=== PATIENT | female | born 1965 | race Hispanic/Latino ===

== ENCOUNTER 2019-10-08 17:02 | Emergency (ER) | payer OTHER, SELFPAY ==
[2019-10-08 17:51] LABS: Absolute Lymphocytes (CBC) 2.2 K/uL (0.7-4.9); Basophils % 1.1 % (0-1.3); Hematocrit 40.3 % (36.0-45.0); Lymphocytes % 28.7 % (15.3-44.8); MPV 10.5 fL (7.6-11.3); RBC Red Blood Cell Count 4.84 M/uL (3.86-4.86)
[2019-10-08 17:53] LABS: Urine Blood TRACE (NEG); Urine Glucose NEGATIVE (NEG); Urine Protein NEGATIVE (NEG); Urine Specific Gravity 1.015 (1.005-1.030)
[2019-10-08] MEDS ORDERED: MORPHINE 4 MG/ML SYR ONE (18:05)
[2019-10-08] MEDS ORDERED: ONDANSETRON 4 MG/2 ML VIAL ONE (18:05)
[2019-10-08 18:07] LABS: Albumin 4.2 g/dL (3.4-5.0); Bilirubin Direct 0.2 mg/dL (0-0.2); Bilirubin Total 0.5 mg/dL (0.2-1.0); Potassium 3.2 mmol/L (3.5-5.1); Protein, Total 8.4 g/dL (6.4-8.2)
--- NOTE | 2019-10-08 19:06 | RAD REPORT ---
EXAM DESCRIPTION: CTAbdomen Pelvis W Contrast - 10/08/2019 6:55 pm CLINICAL HISTORY: Abdominal pain. ABD PAIN COMPARISON: Stone Protocol dated 01/02/2018 TECHNIQUE: Biphasic CT imaging of the abdomen and pelvis was performed with 100 ml non-ionic IV cont rast. All CT scans are performed using dose optimization technique as appropriate and may include automated exposure control or mA/KV adjustment according to patient size. FINDINGS: The lung bases are clear. The liver, spleen, pancreas, adrenal glands are within normal limits. Cholelithiasis. Moderate right hydronephrosis and hydroureter is present caused by 5 mm stone at the right UVJ (900 H U). Additional bilateral renal stones are present. No bowel obstruction, free air, free fluid or abscess. The appendix is normal. No evidence of signi ficant lymphadenopathy. No suspicious bony findings. IMPRESSION: 5 mm stone at the right UVJ with moderate right hydronephrosis and hydroureter. Additional bilateral nephrolithiasis. Cholelithiasis.
[2019-10-08] MEDS ORDERED: TAMSULOSIN 0.4 MG SR CAP ONE (19:52)
[2019-10-08] MEDS ORDERED: NA CHLORIDE 0.9% 1,000 ML ONE (19:52)
--- NOTE | 2019-10-08 20:24 | ER ---
Nurse's Notes [facility] Name: Liberty Maldonado Age: 53 yrs Sex: Female : 1965 Arrival Date: 10/08/2019 Time: 17:05 Bed 13 Private MD: Diagnosis: Calculus of kidney and ureter Presentation: 10/08 17:14 Presenting complaint: Patient states: right lower back pain and chills that began aa5 Sunday. Transition of care: patient was not received from another setting of care. Onset of symptoms was September 2019. Risk Assessment: Do you want to hurt yourself or someone else? Patient reports no desire to harm self or others. Initial Sepsis Screen: Does the patient meet any 2 criteria? No. Patient's initial sepsis screen is negative. Does the patient have a suspected source of infection? No. Patient's initial sepsis screen is negative. Care prior to arrival: None. 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 - Social history:: Smoking status: Patient/guardian denies using tobacco. - Ebola Screening: : No symptoms or risks identified at this time. Screenin:49 Abuse screen: Denies threats or abuse. Nutritional screening: No deficits noted. ae4 Tuberculosis screening: No symptoms or risk factors identified. Fall Risk None identified. Assessment: 17:20 General: Appears in no apparent distress. uncomfortable, Behavior is cooperative, ae4 anxious. Pain: Complains of pain in right lower quadrant. Neuro: Level of Consciousness is awake, alert, obeys commands, Oriented to person, place, time, situation, Appropriate for age. Cardiovascular: Patient's skin is warm and dry. Respiratory: Airway is patent Respiratory effort is even, unlabored, Respiratory pattern is regular, symmetrical, Breath sounds are clear bilaterally. GI: Bowel sounds present X 4 quads. Abd is soft Abdomen is tender to palpation in suprapubic area. : No signs and/or symptoms were reported regarding the genitourinary system. EENT: No signs and/or symptoms were reported regarding the EENT system. Derm: Skin is normal. Musculoskeletal: No signs and/or symptoms reported regarding the musculoskeletal system. 18:48 Reassessment: Patient appears in no apparent distress at this time. Patient states ae4 feeling better. 18:55 GI: Reports nausea, Patient currently denies diarrhea, vomiting. ae4 19:00 Reassessment: awaiting for CT result. Patient denies pain at this time. General: rr5 Appears in no apparent distress. comfortable, Behavior is calm, cooperative, appropriate for age. Pain: Denies pain. Neuro: Level of Consciousness is awake, alert, obeys commands, Oriented to person, place, time, situation, Appropriate for age. Cardiovascular: Capillary refill < 3 seconds Patient's skin is warm and dry. Respiratory: Airway is patent Respiratory effort is even, unlabored, Respiratory pattern is regular, symmetrical. GI: Abdomen is round Patient currently denies pain. : No signs and/or symptoms were reported regarding the genitourinary system. EENT: No signs and/or symptoms were reported regarding the EENT system. Derm: Skin is pink, warm \T\ dry. Musculoskeletal: Circulation, motion, and sensation intact. Capillary refill < 3 seconds. 19:55 Reassessment: Patient appears in no apparent distress at this time. Patient and/or rr5 family updated on plan of care and expected duration. Pain level reassessed. Patient is alert, oriented x 3, equal unlabored respirations, skin warm/dry/pink. 20:50 Reassessment: Patient appears in no apparent distress at this time. Patient is alert, rr5 oriented x 3, equal unlabored respirations, skin warm/dry/pink. 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 Patient denies pain at this time. Patient states feeling better. Patient states symptoms have improved. Vital Signs: 17:15 BP 177 / 79; Pulse 82; Resp 16 S; Temp 98.9(O); Pulse Ox 98% on R/A; Weight 73.48 kg aa5 (R); Height 5 ft. 2 in. (157.48 cm) (R); Pain 7/10; 18:47 BP 150 / 71; Pulse 71; Resp 16; Pulse Ox 96% on R/A; ae4 19:30 BP 163 / 75; Pulse 75; Resp 17; Temp 98.5; Pulse Ox 99% ; Pain 0/10; rr5 20:30 BP 155 / 70; Pulse 79; Resp 16; Temp 98.4; Pulse Ox 98% ; Pain 0/10; rr5 17:15 Body Mass Index 29.63 (73.48 kg, 157.48 cm) aa5 ED Course: 17:05 Patient arrived in ED. mr 17:07 Bill Christine PA is PHCP. m 17:07 Lazarus Dumont MD is Attending Physician. jmm 17:14 Arm band placed on. aa5 17:15 Triage completed. aa5 17:16 Jorge Padilla, BUD is Primary Nurse. ae4 17:46 Patient has correct armband on for positive identification. Placed in gown. Bed in low mh5 position. Call light in reach. Side rails up X 1. Adult w/ patient. Warm blanket given. Pulse ox on. NIBP on. 17:46 Initial lab(s) drawn, by il, sent to lab. Urine collected: clean catch specimen, clear. 5 Inserted saline lock: 20 gauge in right antecubital area, using aseptic technique. Blood collected. 17:47 Basic Metabolic Panel Sent. 5 17:47 CBC with Diff Sent. 5 17:47 Creatinine for Radiology Sent. 5 17:47 Hepatic Function Sent. 5 17:47 Lipase Sent. 5 18:56 CT Abd/Pelvis - IV Contrast Only In Process Unspecified. EDNE 20:23 Chrissie García MD is Referral Physician. [facility] 20:55 No provider procedures requiring assistance completed. IV discontinued, intact, rr5 bleeding controlled, No redness/swelling at site. Pressure dressing applied. Administered Medications: 18:05 Drug: Zofran 4 mg Route: IVP; Site: right antecubital; ae4 18:48 Follow up: Response: No adverse reaction; No nausea with pain medication administration ae4 18:07 Drug: morphine 4 mg Route: IVP; Site: right antecubital; ae4 18:48 Follow up: Response: Pain is decreased; RASS: Alert and Calm (0) ae4 19:54 Drug: NS 0.9% 1000 ml Route: IV; Rate: 1 bolus; Site: right antecubital; rr5 20:30 Follow up: Response: No adverse reaction; IV Status: Completed infusion; IV Intake: rr5 1000ml 19:54 Drug: Flomax 0.4 mg Route: PO; rr5 20:30 Follow up: Response: No adverse reaction rr5 Intake: 20:30 IV: 1000ml; Total: 1000ml. rr5 Outcome: 20:23 Discharge ordered by MD. hull 20:55 Discharged to home ambulatory, with family. rr5 20:55 Condition: stable 20:55 Discharge instructions given to family, Instructed on discharge instructions, follow up and referral plans. medication usage, Demonstrated understanding of instructions, follow-up care, medications, Prescriptions given X 4. 20:58 Patient left the ED. rr5 Signatures: Dispatcher [employer] EDMS Bill Christine PA PA jmm Rivera, Mary mr Macias, Britney, RN RN hreb5 Eleonora Suárez Santana Crespo RN RN rr5 Jorge Padilla RN RN ae4 Corrections: (The following items were deleted from the chart) 18:55 17:20 Musculoskeletal: No signs and/or symptoms reported regarding the musculoskeletal ae4 system. ae4
--- NOTE | 2019-10-08 20:24 | EDPHYS ---
Physician Documentation [facility] Name: Liberty Maldonado Age: 53 yrs Sex: Female : 1965 Arrival Date: 10/08/2019 Time: 17:05 Bed 13 Private MD: ED Physician Lazarus Dumont HPI: 10/08 17:43 This 53 yrs old Female presents to ER via Ambulatory with complaints of jmm Possible Kidney Stone. 17:43 The patient presents with abdominal pain in the right upper quadrant, right lower jmm quadrant. Onset: The symptoms/episode began/occurred gradually, 4 day(s) ago. The symptoms do not radiate. Associated signs and symptoms: Pertinent positives: nausea and vomiting, diarrhea, fever. The symptoms are described as achy. The patient has not experienced similar symptoms in the past. This is a 53 year old female with history of kidney stones that presents to the ED with complaints of right side abdominal pain beginning approx 4 days ago. Patient also complains of fever and chills. . 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 - Social history:: Smoking status: Patient/guardian denies using tobacco. - Ebola Screening: : No symptoms or risks identified at this time. ROS: 17:43 Cardiovascular: Negative for chest pain, palpitations, and edema, Respiratory: Negative jmm for shortness of breath, cough, wheezing, and pleuritic chest pain. 17:43 Constitutional: Positive for fever. 17:43 Abdomen/GI: Positive for abdominal pain, nausea and vomiting, diarrhea. 17:43 All other systems are negative. Exam: 17:43 Head/Face: atraumatic. Eyes: EOMI, no conjunctival erythema appreciated ENT: Moist jmm Mucus Membranes Neck: Trachea midline, Supple Chest/axilla: Normal chest wall appearance and motion. Cardiovascular: Regular rate and rhythm. No edema appreciated Respiratory: Normal respirations, no respiratory distress appreciated 17:43 Back: Normal ROM Skin: General appearance color normal MS/ Extremity: Moves all extremities, no obvious deformities appreciated, no edema noted to the lower extremities Neuro: Awake and alert, normal gait Psych: Behavior is normal, Mood is normal, Patient is cooperative and pleasant 17:43 Constitutional: The patient appears in no acute distress, alert, awake. 17:43 Abdomen/GI: Inspection: abdomen appears normal, Bowel sounds: normal, Palpation: soft, moderate abdominal tenderness, in the right lower quadrant. Vital Signs: 17:15 BP 177 / 79; Pulse 82; Resp 16 S; Temp 98.9(O); Pulse Ox 98% on R/A; Weight 73.48 kg aa5 (R); Height 5 ft. 2 in. (157.48 cm) (R); Pain 7/10; 18:47 BP 150 / 71; Pulse 71; Resp 16; Pulse Ox 96% on R/A; ae4 19:30 BP 163 / 75; Pulse 75; Resp 17; Temp 98.5; Pulse Ox 99% ; Pain 0/10; rr5 20:30 BP 155 / 70; Pulse 79; Resp 16; Temp 98.4; Pulse Ox 98% ; Pain 0/10; rr5 17:15 Body Mass Index 29.63 (73.48 kg, 157.48 cm) aa5 MDM: 17:28 Patient medically screened. [facility] 20:21 Data reviewed: vital signs, nurses notes. Counseling: I had a detailed discussion with kurtis the patient and/or guardian regarding: the historical points, exam findings, and any diagnostic results supporting the discharge/admit diagnosis, lab results, radiology results, the need for outpatient follow up, to return to the emergency department if symptoms worsen or persist or if there are any questions or concerns that arise at home. ED course: Pain relieved in the ED. Advised to follow up with urology. Otherwise given strict return precautions. patient understood and agrees with the plan of care. . 10/08 17:18 Order name: Basic Metabolic Panel; Complete Time: 18:09 [facility] 10/08 17:18 Order name: CBC with Diff; Complete Time: 18:01 [facility] 10/08 17:18 Order name: Creatinine for Radiology; Complete Time: 18:09 [facility] 10/08 17:18 Order name: Hepatic Function; Complete Time: 18:09 [facility] 10/08 17:18 Order name: Lipase; Complete Time: 18:09 [facility] 10/08 17:49 Order name: Urine Dipstick--Ancillary (enter results); Complete Time: 18:00 10/08 17:18 Order name: IV Saline Lock; Complete Time: 17:38 [facility] 10/08 17:18 Order name: Labs collected and sent; Complete Time: 17:38 [facility] 10/08 17:40 Order name: CT Abd/Pelvis - IV Contrast Only; Complete Time: 19:13 [facility] Administered Medications: 18:05 Drug: Zofran 4 mg Route: IVP; Site: right antecubital; ae4 18:48 Follow up: Response: No adverse reaction; No nausea with pain medication administration ae4 18:07 Drug: morphine 4 mg Route: IVP; Site: right antecubital; ae4 18:48 Follow up: Response: Pain is decreased; RASS: Alert and Calm (0) ae4 19:54 Drug: NS 0.9% 1000 ml Route: IV; Rate: 1 bolus; Site: right antecubital; rr5 20:30 Follow up: Response: No adverse reaction; IV Status: Completed infusion; IV Intake: rr5 1000ml 19:54 Drug: Flomax 0.4 mg Route: PO; rr5 20:30 Follow up: Response: No adverse reaction rr5 Disposition: 10/08/19 20:23 Discharged to Home. Impression: Calculus of kidney and ureter. - Condition is Stable. - Discharge Instructions: Kidney Stones. - Prescriptions for Zofran ODT 4 mg Oral tablet,disintegrating - place 1 tablet by TRANSLINGUAL route every 4-6 hours; 20 tablet. Cephalexin 500 mg Oral Capsule - take 1 capsule by ORAL route every 12 hours for 10 days; 20 capsule. Tylenol- Codeine #3 300-30 mg Oral Tablet - take 2 tablet by ORAL route every 6 hours As needed; 30 tablet. Flomax 0.4 mg Oral Capsule, Sust. Release 24 hr - take 1 capsule by ORAL route once daily 1/2 hour following the same meal each day; 30 capsule. - Medication Reconciliation Form, Thank You Letter, Antibiotic Education, Prescription Opioid Use, Work release form form. - Follow up: Private Physician; When: 2 - 3 days; Reason: Recheck today's complaints, Continuance of care, Re-evaluation by your physician. Follow up: Chrissie García MD; When: 2 - 3 days; Reason: Recheck today's complaints, Continuance of care, Re-evaluation by your physician. Addendum: 10/13/2019 09:56 Co-signature as Attending Physician, Lazarus Dumont MD I agree with the assessment and k dr plan of care. Signatures: Dispatcher [employer] EDLazarus Choi MD MD kdr Mickail, Joel, PA PA jmm Calderon, Audri, RN RN aa5 Santana Mead RN RN rr5 Jorge Padilla RN RN ae4 Corrections: (The following items were deleted from the chart) 10/08 20:58 20:23 10/08/2019 20:23 Discharged to Home. Impression: Calculus of kidney and ureter. rr5 Condition is Stable. Forms are Medication Reconciliation Form, Thank You Letter, Antibiotic Education, Prescription Opioid Use. Follow up: Private Physician; When: 2 - 3 days; Reason: Recheck today's complaints, Continuance of care, Re-evaluation by your physician. Follow up: Chrissie García; When: 2 - 3 days; Reason: Recheck today's complaints, Continuance of care, Re-evaluation by your physician. [facility]
[2019-10-08 21:55] VITALS: BP 155/70; TEMP 98.4; O2SAT 98
== END 2019-10-08 20:58 | disposition home or self-care (01) ==
LOC: ER 17:02
DX: N20.0 Calculus of kidney (principal); N20.1 Calculus of ureter
CPT/HCPCS: 36415; 74177; 80048; 80076; 81003; 83690; 85025; 96361; 96374; 96375; 99284; J2405; J7030; Q9967